=== PATIENT | male | born 1970 | race African-American/Black ===

== ENCOUNTER 2018-01-10 11:00 | Emergency (ER) | payer OTHER ==
[~2018-01-10] VITALS: Ht 175.3 cm; Wt 68.0 kg
[2018-01-10 12:38] VITALS: BP 126/85
== END 2018-01-10 12:40 | disposition home or self-care (01) ==
LOC: ER 11:00
DX: S61.210A Laceration without foreign body of right index finger without damage to nail, initial encounter (principal); W26.8XXA Contact with other sharp object(s), not elsewhere classified, initial encounter; Y93.89 Activity, other specified; Y92.89 Other specified places as the place of occurrence of the external cause; Y99.8 Other external cause status

== ENCOUNTER 2021-03-24 02:40 | Emergency (ER) | payer OTHER ==
[~2021-03-24] VITALS: Ht 175.3 cm; Wt 70.3 kg
[2021-03-24] MEDS ORDERED: WAL-PROFEN200 MG PO (02:43)
[2021-03-24 04:22] VITALS: BP 154/88
== END 2021-03-24 04:10 | disposition home or self-care (01) ==
LOC: ER 02:40
DX: S90.31XA Contusion of right foot, initial encounter (principal); Z79.899 Other long term (current) drug therapy; X58.XXXA Exposure to other specified factors, initial encounter; Y93.89 Activity, other specified; Y92.89 Other specified places as the place of occurrence of the external cause; Y99.8 Other external cause status